=== PATIENT | female | born 1995 | race American Indian/Alaskan Native ===

== ENCOUNTER 2019-01-22 11:03 | Outpatient (CLI) | payer OTHER ==
[2019-01-22 11:37] VITALS: BP 114/60
== END 2019-01-22 13:05 | disposition home or self-care (01) ==
LOC: TRG 11:03
PROVIDERS: ATTEND Obstetrics & Gynecology
DX: O47.02 False labor before 37 completed weeks of gestation, second trimester (principal); Z3A.22 22 weeks gestation of pregnancy

== ENCOUNTER 2019-05-11 09:27 | Inpatient (IN) | payer BC, OTHER ==
[2019-05-11] MEDS ORDERED: ACETAMINOPHEN W/CODEINE 300-30 MG TAB PO ONE (10:16)
[2019-05-11] MEDS ORDERED: LACTATED RINGERS 2,000 ML ONE (11:25)
[2019-05-11] MEDS ORDERED: MINERAL OIL 30 ML ORAL LIQD PO PRN (11:33)
[2019-05-11] MEDS ORDERED: LIDOCAINE (2%) 20 MG/1 ML VIAL 20 ML MDV INFILTRATI ONE (11:33)
[2019-05-11] MEDS ORDERED: ePHEDrine SULFATE 50 MG/1 ML INJ IV PRN (11:33)
[2019-05-11] MEDS ORDERED: LACTATED RINGERS 1,000 ML IV SCH (12:00)
[2019-05-11] MEDS ORDERED: OXYTOCIN 20 UNIT/1000ML DRIP 20 UNITS/1,000 ML BAG IV SCH ×2 (12:00→14:00)
[2019-05-11] MEDS ORDERED: OXYTOCIN DRIP 30 UNITS/500 ML BAG IV SCH (12:00)
[2019-05-11 12:29] LABS: Hemoglobin 11.4 gm/dl (10.1-14.3); Mean Corpuscular HGB Conc 33 % (30-34); Mean Corpuscular Volume 78 fl (79-97); Platelet Count 222 K/mm3 (140-440); Red Blood Count 4.49 M/mm3 (3.65-5.03); Red Cell Distribution Width 17.1 % (13.2-15.2)
[2019-05-11] MEDS ORDERED: fentaNYL 100 MCG/2 ML INJ ONE (13:02)
[2019-05-11] MEDS ORDERED: PROMETHAZINE 25 MG TAB PO PRN (13:13)
[2019-05-11] MEDS ORDERED: ACETAMINOPHEN 325 MG TAB PO PRN (13:13)
[2019-05-11] MEDS ORDERED: MAGNESIUM HYDROXIDE (MOM) ORAL LIQD UDC PO PRN (13:13)
[2019-05-11] MEDS ORDERED: WITCH HAZEL/ GLYCERIN PAD TP PRN (13:13)
[2019-05-11] MEDS ORDERED: KETOROLAC 30 MG/1 ML INJ IV PRN (13:13)
[2019-05-11] MEDS ORDERED: ONDANSETRON 4 MG/2 ML INJ IV PRN (13:13)
[2019-05-11] MEDS ORDERED: diphenhydrAMINE 25 MG CAP PO PRN (13:13)
[2019-05-11] MEDS ORDERED: HYDROcodone/ACETAMINOPHEN 5-325 MG TAB PO PRN (13:13)
[2019-05-11] MEDS ORDERED: LANOLIN/ZINC/DIMETHICONE (LANSINOH) 7 GM TP PRN (13:13)
[2019-05-11] MEDS ORDERED: PROMETHAZINE 25 MG RECT SUPP PR PRN (13:13)
--- NOTE | 2019-05-11 13:26 | History and Physical Report ---
History of Present Illness Date of examination: 05/11/19 Date of admission: 05/11/19 11:28 Chief complaint: contractions History of present illness: This is a 23 yo at 39+1 weeks her efor contractions. She was noted to be 5cm . She was admitted. chart unavaialble. patient reports GBS neg. patient of [facility] ( [facility]) Past History Past Medical History: no pertinent history Past Surgical History: no surgical history Family/Genetic History: none Social history: no significant social history, single. denies: smoking, alcohol abuse, prescription drug abuse - Obstetrical History Expected Date of Delivery: 05/17/19 Actual Gestation: 39 Week(s) 1 Day(s) : 2 Para: 1 Hx # Term Pregnancies: 1 Number of Pregnancies: 0 Spontaneous Abortions: 0 Induced : 0 Number of Living Children: 1 Medications and Allergies Allergies Allergy/AdvReac Type Severity Reaction Status Date / Time No Known Allergies Allergy Unverified 01/22/19 11:57 Home Medications Medication Instructions Recorded Confirmed Last Taken Type Vitamin 325 tab PO DAILY 01/22/19 01/22/19 Unknown History Active Meds: Active Medications Acetaminophen (Tylenol) 650 mg PO Q4H PRN PRN Reason: Pain MILD(1-3)/Fever >100.5/MURGUIA Acetaminophen/Hydrocodone Bitart ([place] 5/325) 2 each PO Q6H PRN PRN Reason: Pain, Moderate (4-6) Bisacodyl (Dulcolax) 10 mg ME BID PRN PRN Reason: Constipation Diphenhydramine HCl (Benadryl) 25 mg PO Q6H PRN PRN Reason: Itching Diphtheria/Tetanus/Acell Pertussis (Boostrix) 0.5 ml IM .ONCE ONE Stop: 05/12/19 13:14 Docusate Sodium (Colace) 100 mg PO BID CARMEN Ephedrine Sulfate (Ephedrine Sulfate) 10 mg IV Q2M PRN PRN Reason: Hypotension Oxytocin/Sodium Chloride (Pitocin/Ns 20 Unit/1000ml Drip) 20 units in 1,000 mls @ 125 mls/hr IV DIRECT CARMEN Last Admin: 05/11/19 13:07 Dose: 125 mls/hr Documented by: Oxytocin/Sodium Chloride (Pitocin/Ns 30 Unit/500ml) 30 units in 500 mls @ 1 mls/hr IV TITR CARMEN; Protocol Lactated Ringer's (Lactated Ringers) 1,000 mls @ 125 mls/hr IV DIRECT CARMEN Oxytocin/Sodium Chloride (Pitocin/Ns 20 Unit/1000ml Drip) 20 units in 1,000 mls @ 250 mls/hr IV DIRECT CARMEN Ibuprofen (Ibuprofen) 600 mg PO Q6H CARMEN Ketorolac Tromethamine (Toradol) 30 mg IV Q6H PRN PRN Reason: Pain, Moderate (4-6) Stop: 05/16/19 13:12 Magnesium Hydroxide (Milk Of Magnesia) 30 ml PO HS PRN PRN Reason: Constipation Measles/Mumps/Rubella Vaccine Live (M-M-R Ii Vaccine) 0.5 ml SUB-Q .ONCE ONE Stop: 05/12/19 13:14 Mineral Oil (Mineral Oil) 30 ml PO QHS PRN PRN Reason: Constipation Multi-Ingredient Ointment (Lansinoh) 1 applic TP PRN PRN PRN Reason: Sore Nipples Multivitamins/Iron/Calcium ( Vitamin) 1 each PO QDAY [facility] Ondansetron HCl (Zofran) 4 mg IV Q8H PRN PRN Reason: Nausea And Vomiting Oxycodone/Acetaminophen (Percocet 5/325) 1 tab PO Q6H PRN PRN Reason: Pain, Moderate (4-6) Promethazine HCl (Phenergan) 25 mg ME Q6H PRN PRN Reason: Nausea And Vomiting Promethazine HCl (Phenergan) 25 mg PO Q6H PRN PRN Reason: Nausea And Vomiting Senna/Docusate Sodium (Senokot S) 2 tab PO Q12H [facility] Sodium Chloride (Sodium Chloride Flush Syringe 10 Ml) 10 ml IV PRN NR Witch Kristen/Glycerin (Tucks Pad) 1 each TP PRN PRN PRN Reason: Hemorrhoid/cleansing/soothing Review of Systems All systems: negative - Vital Signs Vital signs: Vital Signs Pulse BP Pulse Ox 97 H 115/67 100 05/11/19 09:54 05/11/19 09:54 05/11/19 09:54 Temp Pulse Resp BP Pulse Ox 97.5 F L 93 H 119/81 97 05/11/19 10:01 05/11/19 13:13 05/11/19 13:13 05/11/19 10:15 - Physical Exam Breasts: Positive: normal Cardiovascular: Regular rate, Normal S1 Lungs: Positive: Clear to auscultation, Normal air movement Abdomen: Positive: normal appearance, soft, normal bowel sounds. Negative: distention, tenderness, guarding Genitourinary (Female): Positive: normal external genitalia, normal perenium Vagina: Positive: normal moisture Uterus: Positive: normal size, normal contour Anus/Rectum: Positive: normal perianal skin Extremities: Positive: normal Deep Tendon Reflex Grade: Normal +2 - Obstetrical Cervical Dilatation: 5 Cervical Effacement Percentage: 80 station: -2 Uterine Contraction Pattern: Regular Uterine Tone Measurement Phase: Contraction Uterine Contraction Intensity: Moderate Results Result Diagrams: 05/11/19 11:15 Abnormal lab results 05/11/19 Range/Units 11:15 MCV 78 L (79-97) fl MCH 26 L (28-32) pg RDW 17.1 H (13.2-15.2) % All other labs normal. Assessment and Plan A/P HD#1 39 weeks GBS neg active labor IVF, labs offer epidural expect vaginal delivery
--- NOTE | 2019-05-11 13:28 | Procedure Note ---
OB Delivery Note - Delivery Date of Delivery: 05/11/19 Surgeon: FAWN CASTAÑEDA Estimated blood loss: 300cc - Vaginal Delivery presentation: vertex Delivery position: OA Delivery induction: none Delivery augmentation: rupture of membranes Delivery monitor: external FHT, external uterine Route of delivery: Delivery placenta: spontaneous Delivery cord: 3 umbilical vessels Episiotomy: none Delivery laceration: vaginal side wall Delivery repair: vicryl Anesthesia: local, intravenous Delivery comments: Patient was noted to be c/c/ +1 asnd commenced to pushing a viable female infant at with a weight of 6 pounds 11oz. The baby head and shoulders delivered easily. The cord was clamped and cut and placed on mom chest. The placenta delivered intact with 3 vessel cord at 1254. Survey of perineum revealed B/L side wall lac repaired with 3-0 vicryl in normal fashion after lidocaine injected. EBL 300 cc. Patient tolerated procedure well and bonding with baby. - A at 1 minute: 8 at 5 minutes: 9 Infant Gender: Female (6 pounds 11oz)
[2019-05-11] MEDS ORDERED: IBUPROFEN 600 MG TAB PO SCH (14:00)
[2019-05-11] MEDS: oxyCODONE /ACETAMINOPHEN 5-325MG TAB PO PRN (19:57)
[2019-05-11] MEDS ORDERED: BENZOCAINE/MENTHOL 20/0.5% TOP SPRAY 56 GM TP PRN (20:11)
[2019-05-11] MEDS: IBUPROFEN 600 MG TAB PO SCH (23:02)
[2019-05-11] MEDS: DOCUSATE SODIUM 100 MG CAP PO SCH (23:02)
[2019-05-12 01:07] LABS: Hematocrit 31.8 % (30.3-42.9); Hemoglobin 10.5 gm/dl (10.1-14.3)
[2019-05-12] MEDS: IBUPROFEN 600 MG TAB PO SCH ×3 (05:25→17:39)
[2019-05-12] MEDS: SENNOSIDES/DOCUSATE SODIUM 8.6/50 MG TAB PO SCH ×2 (06:09→14:13)
[2019-05-12] MEDS: oxyCODONE /ACETAMINOPHEN 5-325MG TAB PO PRN (08:44)
--- NOTE | 2019-05-12 09:00 | Progress Note ---
Assessment and Plan A/P PPD1 s/p h/h stable routien PP care consider d/c home tomorrow Subjective - Subjective Date of service: 05/12/19 Principal diagnosis: Interval history: This is a 23 yo at 39+1 weeks her efor contractions. She was noted to be 5cm . She was admitted. chart unavaialble. patient reports GBS neg. patient of [facility] ( [facility]) Patient reports: appetite normal, voiding normally, pain well controlled, flatus, ambulating normally : doing well Objective - Vital Signs Latest vital signs: Vital Signs Temp Pulse Resp BP BP Pulse Ox 05/12/19 07:50 98.0 F 71 18 103/63 97 05/12/19 00:15 97.9 F 80 20 126/75 99 05/11/19 23:45 98.4 F 74 20 118/76 98 05/11/19 21:03 98.8 F 90 20 137/80 95 05/11/19 15:10 97.9 F 85 16 109/65 98 05/11/19 14:13 83 108/61 05/11/19 13:58 90 110/78 05/11/19 13:44 81 104/71 05/11/19 13:28 84 114/67 05/11/19 13:13 93 H 119/81 05/11/19 10:15 99 H 97 05/11/19 10:13 86 93 05/11/19 10:10 90 94 05/11/19 10:07 94 H 91 05/11/19 10:05 88 99 05/11/19 10:02 84 91 05/11/19 10:01 97.5 F L 05/11/19 09:59 93 H 98 05/11/19 09:54 97 H 115/67 100 Intake and Output 05/11/19 05/12/19 05/12/19 23:59 07:59 15:59 Intake Total 720 240 Output Total 200 400 Balance 520 -160 Intake: Oral 720 240 Output: Urine 200 400 Void 200 400 Other: Total, Intake Amount 240 120 Total, Output Amount 200 200 # Voids Void 2 - Exam Breasts: Present: normal Cardiovascular: Present: Regular rate, Normal S1 Lungs: Present: Clear to auscultation, Normal air movement Abdomen: Present: normal appearance, soft, normal bowel sounds. Absent: distention, tenderness, guarding Vulva: both: normal Uterus: Present: normal, firm, fundal height below umbilicus. Absent: bogginess, tenderness Extremities: Present: normal Deep Tendon Reflex Grade: Normal +2 - Labs Labs: Abnormal lab results 05/11/19 Range/Units 11:15 MCV 78 L (79-97) fl MCH 26 L (28-32) pg RDW 17.1 H (13.2-15.2) %
--- NOTE | 2019-05-12 09:02 | Discharge Summary ---
Providers - Providers Date of Admission: 05/11/19 11:28 Date of discharge: 05/13/19 Attending physician: FAWN CASTAÑEDA MD Primary care physician: FAWN CASTAÑEDA MD Hospitalization Reason for admission: active labor Delivery: Episiotomy: none Laceration: vaginal side wall Incision: normal Other procedures: none complications: none Discharge diagnosis: IUP at term delivered baby: female Hospital course: Diane came in active labor and delivered a viable female . Routine PP care and discharged in stable condition on PPD2 Condition at discharge: Good Disposition: DC-01 TO HOME OR SELFCARE Plan - Discharge Medications Prescriptions: Ibuprofen [Motrin] 600 mg PO Q8H PRN #30 tablet PRN Reason: Pain - Provider Discharge Summary Activity: routine, no sex for 6 weeks, no strenuous exercise Diet: routine Instructions: routine Additional instructions: [] Smoking cessation referral if applicable(refer to patient education folder for contact #) [] Refer to [facility]'s [facility] Booklet Call your doctor immediately for: * Fever > 100.5 * Heavy vaginal bleeding ( >1 pad per hour) * Severe persistent headache * Shortness of breath * Reddened, hot, painful area to leg or breast * Drainage or odor from incision. * Keep incision clean and dry at all times and follow doctor's instructions regarding bathing/showering - Follow up plan Follow up: FAWN CASTAÑEDA MD [Primary Care Provider] - 06/10/19
[2019-05-12] MEDS: PRENATAL VIT27-FE FUMARATE-FOLIC ACID VIT TAB PO SCH (10:02)
[2019-05-12] MEDS: DOCUSATE SODIUM 100 MG CAP PO SCH ×2 (10:02→22:36)
[2019-05-12] MEDS ORDERED: TETANUS,DIPH,PERTUSS(ACELL) VACCINE 0.5 ML SYRINGE IM ONE (13:13)
[2019-05-12] MEDS ORDERED: MEASLES, MUMPS & RUBELLA 12,500 UNIT/0.5 ML VACCINE SUB-Q ONE (13:13)
[2019-05-13] MEDS: oxyCODONE /ACETAMINOPHEN 5-325MG TAB PO PRN (08:35)
[2019-05-13] MEDS: DOCUSATE SODIUM 100 MG CAP PO SCH (10:28)
[2019-05-13] MEDS: PRENATAL VIT27-FE FUMARATE-FOLIC ACID VIT TAB PO SCH (10:29)
[2019-05-13 14:38] VITALS: BP 121/76
== END 2019-05-13 15:00 | disposition home or self-care (01) | DRG 807 ==
LOC: TRG 09:27 → LD 11:28 → OB 16:19
PROVIDERS: ADMIT Obstetrics & Gynecology; ATTEND Obstetrics & Gynecology
PROC: 10E0XZZ Delivery of Products of Conception, External Approach (ICD-10-PCS; principal; 2019-05-11)
PROC: 0UQGXZZ Repair Vagina, External Approach (ICD-10-PCS; 2019-05-11)
PROC: 3E0234Z Introduction of Serum, Toxoid and Vaccine into Muscle, Percutaneous Approach (ICD-10-PCS; 2019-05-12)
DX: O71.4 Obstetric high vaginal laceration alone (principal); Z37.0 Single live birth; Z3A.39 39 weeks gestation of pregnancy; Z23 Encounter for immunization
CPT/HCPCS: 36415; 59025; 85014; 85018; 85027; 86850; 86900; 86901; G0378; J2590; J3010; J7120